=== PATIENT | male | born 1975 | race Caucasian/White ===

== ENCOUNTER 2016-05-01 02:15 | Emergency (ER) | payer MEDICAID, OTHER ==
[2016-05-01 04:54] LABS: ACETAMINOPHEN < 10 ug/mL (10-30)
--- NOTE | 2016-05-01 05:36 | ER ---
DATE SEEN: 05/01/2016 ADDENDUM: TIME SEEN: The patient was seen at 0220 hours. /[id number] NAS/BRYCE
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
[2016-05-01 16:54] VITALS: BP 132/70
--- NOTE | 2016-05-24 12:11 | ER ---
DATE SEEN: 05/01/2016 ADDENDUM: PAST MEDICAL HISTORY: Status post vasectomy, dental surgery, depression, previous suicidal ideation. No other previous surgery. /[id number] NAS/BRYCE
== END 2016-05-01 14:30 | disposition home or self-care (01) ==
LOC: FB.ED 02:15
DX: F32.9 Major depressive disorder, single episode, unspecified (principal)
CPT/HCPCS: 36415; 80053; 80305; 84443; 85025; 99285; G0480; 99284